=== PATIENT | female | born 1980 | race Two or more races ===

== ENCOUNTER → 2020-07-29 | Emergency (ER) | payer OTHER ==
[~2020-07-29] VITALS: Ht 172.7 cm; Wt 76.2 kg
[~2020-07-29] MED LIST: ACETAMINOPHEN650 M2 PO; CHILDREN'S ASPI81 MG; DICLEGIS DR 101 EACH; KEFLEX500 MG PO; LOVENOX100 MG/1 M
== END | disposition left against medical advice (07) ==
LOC: ER 22:53 → EDBD 22:59
DX: O22.8X2 Other venous complications in pregnancy, second trimester (principal); I87.2 Venous insufficiency (chronic) (peripheral); O26.892 Other specified pregnancy related conditions, second trimester; I73.9 Peripheral vascular disease, unspecified; Z3A.21 21 weeks gestation of pregnancy

== ENCOUNTER 2020-07-30 12:17 | Emergency (ER) | payer OTHER ==
[~2020-07-30] VITALS: Ht 172.7 cm; Wt 76.2 kg
[~2020-07-30 12:17] MED LIST changes: -ACETAMINOPHEN650 M2 PO; -KEFLEX500 MG PO
[2020-07-30] MEDS ORDERED: ACETAMINOPHEN650 M2 PO (21:41)
[2020-07-30] MEDS ORDERED: KEFLEX500 MG PO ×2 (21:42)
== END 2020-07-30 22:06 | disposition home or self-care (01) ==
LOC: ER 12:17
DX: O26.892 Other specified pregnancy related conditions, second trimester (principal); R20.2 Paresthesia of skin; M79.661 Pain in right lower leg; Z34.02 Encounter for supervision of normal first pregnancy, second trimester

== ENCOUNTER 2020-09-19 10:39 | Outpatient (CLI) | payer OTHER ==
[~2020-09-19 10:39] MED LIST changes: +ACETAMINOPHEN650 M2 PO; +KEFLEX500 MG PO
== END 2020-09-19 11:24 | disposition home or self-care (01) ==
LOC: NST 10:39
PROVIDERS: ATTEND Obstetrics & Gynecology
DX: Z34.83 Encounter for supervision of other normal pregnancy, third trimester (principal)

== ENCOUNTER 2020-10-10 13:42 | Outpatient (CLI) | payer OTHER | END 2020-10-10 14:57 | disposition home or self-care (01) | LOC: NST 13:42 | PROVIDERS: ATTEND Obstetrics & Gynecology Maternal & Fetal Medicine | DX: Z34.83 Encounter for supervision of other normal pregnancy, third trimester (principal) ==

== ENCOUNTER 2020-10-24 11:00 | Outpatient (CLI) | payer OTHER | END 2020-10-24 11:23 | disposition home or self-care (01) | LOC: NST 11:00 | PROVIDERS: ATTEND Obstetrics & Gynecology | DX: Z34.83 Encounter for supervision of other normal pregnancy, third trimester (principal) ==

== ENCOUNTER 2020-11-07 11:18 | Outpatient (CLI) | payer OTHER | END 2020-11-07 11:44 | disposition home or self-care (01) | LOC: NST 11:18 | PROVIDERS: ATTEND Obstetrics & Gynecology | DX: Z34.83 Encounter for supervision of other normal pregnancy, third trimester (principal) ==

== ENCOUNTER 2020-11-14 12:15 | Inpatient (IN) | payer OTHER ==
[~2020-11-14] VITALS: Ht 172.7 cm; Wt 83.0 kg
[2020-11-29] MEDS ORDERED: IRON236 MG PO (10:43)
[2020-11-29] MEDS ORDERED: OBTREX DHA COM1 EACH PO (10:43)
== END 2020-12-01 14:35 | disposition home or self-care (01) | DRG 807 ==
LOC: LDR 11-29 07:13 → SURG-SUITE 11-29 07:13 → LDR 11-29 17:23 → OB/GYN 11-30 00:32 → SURG-SUITE 11-30 14:22 → OB/GYN 12-12 12:15 → SURH 12-12 12:15
PROVIDERS: ADMIT Obstetrics & Gynecology Maternal & Fetal Medicine; ATTEND Obstetrics & Gynecology Maternal & Fetal Medicine
PROC: 10E0XZZ Delivery of Products of Conception, External Approach (ICD-10-PCS; principal; 2020-11-29)
PROC: 0HQ9XZZ Repair Perineum Skin, External Approach (ICD-10-PCS; 2020-11-29)
PROC: 4A1HXFZ Monitoring of Products of Conception, Cardiac Rhythm, External Approach (ICD-10-PCS; 2020-11-29)
DX: O70.0 First degree perineal laceration during delivery (principal); Z37.0 Single live birth; Z3A.39 39 weeks gestation of pregnancy; Z20.822 Contact with and (suspected) exposure to COVID-19

== ENCOUNTER 2020-11-21 13:38 | Outpatient (CLI) | payer OTHER | END 2020-11-21 14:57 | disposition home or self-care (01) | LOC: NST 13:38 | PROVIDERS: ATTEND Obstetrics & Gynecology Maternal & Fetal Medicine | DX: Z34.83 Encounter for supervision of other normal pregnancy, third trimester (principal) ==

== ENCOUNTER 2020-11-27 14:55 | Outpatient (CLI) | payer OTHER | END 2020-11-27 16:25 | disposition home or self-care (01) | LOC: NST 14:55 | PROVIDERS: ATTEND Obstetrics & Gynecology | DX: O09.73 Supervision of high risk pregnancy due to social problems, third trimester (principal) ==